=== PATIENT | female | born 2005 | race Caucasian/White ===

== ENCOUNTER → 2025-01-24 08:48 | Outpatient (BNVA) | payer SELFPAY | PROVIDERS: Visit Provider Emergency Medicine | DX: S62.630B Displaced fracture of distal phalanx of right index finger, initial encounter for open fracture (principal); W23.0XXA Caught, crushed, jammed, or pinched between moving objects, initial encounter | CPT/HCPCS: 99203 ==

== ENCOUNTER 2025-01-24 10:36 | Emergency (ER) | payer OTHER, SELFPAY ==
[2025-01-24 10:42] VITALS: BP 126/61; PULSE 79; RESP 18; TEMP 36.4; O2SAT 98; BMI 36.6
--- NOTE | 2025-01-24 11:17 | ED_ITS ---
HPI - Wound/Laceration General Chief Complaint: Wound/Laceration Stated Complaint: finger infection Time Seen by Provider: 01/24/25 12:17 Source: patient and family (patient's mother) Mode of arrival: ambulatory Limitations: no limitations History of Present Illness ED Provider: Nikole Cristobal PA-C HPI narrative: Patient is a 19 year old assigned female at with no reported medical history presenting to the emergency department today with a right index finger injury. Patient states that she smashed her finger between 2 metal pieces at work and continues to have pain. Patient denies any other complaints at this time. Patient states that she was evaluated at [facility] and sent here because her x-ray showed a probable fracture. Related Data Previous Rx's ?Medication ?Instructions ?Recorded amoxicillin 875 mg-potassium 1 tab PO BID 7 days #14 t abs 01/27/25 clavulanate 125 mg tablet Allergies Allergy/AdvReac Type Severity Reaction Status Date / Time nut - unspecified Allergy Unknown Verified 01/27/25 10:06 Review of Systems 2 Constitutional: Constitutional: Reports as per HPI Eyes: Eyes: Reports as per HPI ENT: Reports as per HPI Cardiovascular: Cardiovascular: Reports as per HPI Respiratory: Respiratory: Reports as per HPI Gastrointestinal: Gastrointestinal: Reports as per HPI Genitourinary: Genitourinary: Reports as per HPI Musculoskeletal: Musculoskeletal: Reports as per HPI Integumentary/Breasts: Skin/Breast: Reports as per HPI Neurologic: Reports as per HPI Psychiatric: Psychiatric: Reports as per HPI Endocrine: Endocrine: Reports as per HPI Hematologic/Lymphatic: Hematologic/Lymphatic: Reports as per HPI Allergic/Immunologic: Allergic/Immunologic: Reports as per HPI [facility] Past Medical History Attestation statement: The following information was validated with the patient. (all information validated with the patient's with the patient's mother) Source: old records reviewed, obtained from family (patient's mother provided additional history and confirmed the history provided by the patient.) and nursing notes reviewed Social History Social History (Updated 01/27/25 @ 10:10 by MARISOL Hurd) Alcohol intake: never Patient Tobacco Use Status: Never used Tobacco Current occupational status: employed Current occupation: wire welder, rt handed Physical Exam 2 Vital Signs: Vital Signs: Last Vital Signs Temp 98.7 F 01/24/25 14:31 Pulse 68 01/24/25 14:31 Resp 18 11/18/25 14:31 BP 124/70 01/24/25 14:31 Pulse Ox 99 01/24/25 14:31 O2 Del Method Room Air 01/24/25 14:31 BMI result Body Mass Index 36.6 Const: General: cooperative, no acute distress, alert and awake Nutritional Appearance: well nourished Orientation/consciousness: patient oriented x3 HEENT: Head: Yes normal to inspection and Yes atraumatic Ears: hearing grossly normal bilaterally and external ears normal General nose exam: Normal external nose present, no nasal discharge noted and no epistaxis Face and sinus: Yes normal facial exam, No abrasion and No laceration Mouth: Normal oral and palatal mucosa present, no drooling and no muffled voice Eyes: General: appearance normal, both eyes and all related structures P eriorbital: periorbital findings normal Eyelids: Yes eyelids normal C onjunctivae: conjunctivae normal Pupils: Equal, round and reactive pupils present EOM: EOMs intact bilaterally Neck: Neck: Yes normal visual inspection and Yes full ROM Resp: Effort & Inspection: normal respiratory effort and able to speak in complete sentences Neuro: General: patient oriented x3, moves all extremities and CN's II-XI intact bilaterally Cranial nerves: Yes Equal, round and reactive pupils present Cognition (Neuro): normal cognition Extrem: Other: General: Yes full ROM and Yes capillary refill normal Psych: Appearance: grossly normal Mental Status: mental status grossly normal Affect: normal affect Attitude: cooperative Thought process: N ormal thought process present Thought content: Normal thought content present Insight: Good insight present (Psych) Course Course Course Narrative: This is an RME: Additional HPI, ROS, PE not included below will be deferred to primary provider. RME assessment and note performed by: Nela Kapoor PA-C This is a 19-year-old female who presents emergency department with complaints of right 2nd digit laceration /open fracture. She is coming from [facility]. She states that her finger got trapped in between 2 pieces of metal. Last tetanus was in 2017. Unable to visualize in triage due to finger being wrapped. Medications Administered Discontinued Medications Generic Name Dose Route Start Last Admin Trade Name Freq PRN Reason Stop Dose Admin Diphtheria/Tetanus/Acell Pertussis 0.5 ml 01/24/25 12:31 01/24/25 12:51 Diphth,Pertus(Yoselin),Tet Adult 0.5 Ml Syringe IM 01/24/25 12:32 0.5 ml .ONCE ONE Administration Lidocaine HCl 15 ml 01/24/25 12:31 01/24/25 12:51 Lidocaine Hcl 1 % Mpf 5 Ml Vial SUBCUT 01/24/25 12:32 15 ml ONCE ONE Administration Medical Decision Making Medical Decision Making MDM Narrative: Patient is a 19 year old assigned female at with no reported medical history presenting to the emergency department today with a right index finger injury. Patient's physical exam was as noted in the physical exam portion of this note. Patient's right finger x-ray showed a comminuted distal tuft fracture to the distal phalanx of the second digit with subcutaneous emphysema. I spoke with the orthopedic team who recommended approximating the wound edges as best as possible and splinting the finger with prophylactic antibiotic coverage and follow up with them on an outpatient basis. Patient's laceration was thoroughly cleaned and soaked. Patient's laceration was repaired - per procedure note, without incident. The patient's nail was not adhered to the nail bed and was removed during the repair process. Patient's PMS was intact prior to and after laceration repair. Patient's nail bed was covered with xeroform and the laceration as bandaged with non-stick gauze and web roll, without incident. Patient's finger was then splinted with a long finger splint, without incident. Patient's PMS was intact prior to and after bandaging and splinting. Patient brought up to date on tetanus status. I explained my physical exam findings as well as all test results to the patient and the patient's mother. I answered all questions asked by the patient and the patient's mother. I stressed the importance of the patient taking her medication as directed (either prescribed or as the over the counter packaging recommends). I stressed the importance of the patient following up with her primary care provider and the orthopedic team. I stressed the importance of the patient returning to the emergency department immediately if her symptoms were to worsen or if she were to develop any dizziness, shortness of breath, difficulty breathing, chest pain, blurry vision, loss of vision, nausea, vomiting, abdominal pain, fever, chills, back pain, or any other complaints. Patient and the patient's mother verbalized agreement and understanding with this treatment plan and discharge. Differential Diagnosis Differential Diagnoses: The differential diagnosis associated with the presentation includes Finger laceration Finger fracture Admission/Observation Consideration of admission/observation: Escalation of care including admission/observation considered Patient would have been admitted to the hospital had her work up had any findings where hospital admission was appropriate and her clinical presentation warranted hospital admission. Consult Healthcare Provider Management of the patient was discussed with: Retail Sales Merchandiser (I spoke with the orthopedic team as noted in the MDM Rationale portion of this note. ) Independent Interpretation I performed an independent interpretation of an: Plain X-Ray Interpretation: My interpretation is in agreement with the radiologist's impression of this imaging study below. Radiology Impression Discussion of test interpretation with radiology: I have reviewed the radiologist's reading. Independent Historian Clinical information obtained from an independent historian. History obtained from or confirmed by: Parent (patient's mother provided additional history and confirmed the history provided by the patient. ) External Record Review External record reviewed: Prior outpatient radiology (reviewed patients finger XR performed through [facility] as noted in the MDM Rationale portion of this note. ) Prescription Management I considered prescription management with: Antibiotic (patient prescribed prophylactic antibiotic as noted in the MDM Rationale portion of this note due to mechanism of injury. ) Procedures Laceration R index finger laceration: Site: other (finger laceration) Side (If applicable): right Size (cm): 2 Description: irregular Depth: simple, single layer Local Anesthetic: lidocaine 1% Pre-repair: wound explored, irrigated extensively and deep structures intact Skin layer closed with: other (prolene) Number of sutures: 1 Technique: simple, interrupted Nerve Block Nerve Block 1: Time out performed: Yes Local Anesthetic: lidocaine 1% Amount of anesthesia used (mL): 10 Side: right Nerve Blocks: digital (index) Procedure Successful: Yes Patient Tolerated Procedure: well Complications: none Orthopedic Splinting/Casting R index finger: Side: right Upper Extremity Injury Location: finger (index) Upper Extremity Immobilizer: finger (other) Critical Care Time Critical Care Time Critical Care Time: Yes Total Critical Care Time: 35 Attestation: I spent 35 minutes of Critical Care Time with this patient. This does not include time spent on separately reported billable procedures. Discharge Plan Discharge Clinical Impression: Open fracture, Crush injury, Finger laceration, Finger fracture Patient Disposition: Home, Self-Care Instructions: Care For Your Stitches (DC), Finger Fracture (ED), Finger Laceration (ED) Additional Instructions: Do NOT stick anything down / into your splint. Do NOT get your splint wet. Do N OT remove your splint. If you have any change in sensation, movement, or color of your right index finger tip - you may loosen the outer KIT wraps. If you find yourself loosening the KIT wraps to the point of seeing the white splint material underneath - STOP and proceed to your closest Emergency Department, i mmediately. Follow up with your primary care provider and the orthopedic team. Take your antibiotic as prescribed. Return to the emergency department immediately if your symptoms worsen or if you develop any numbness, tingling, dizziness, shortness of breath, difficulty breathing, chest pain, blurry vision, loss of vision, nausea, vomiting, abdominal pain, fever, chills, back pain, or any other complaints. Please see the information below about our Patient Portal. If you are not yet enrolled in the [facility] Patient Portal, you will receive an enrollment email invitation following your visit to any [facility] care setting. You may also self-enroll in the Patient Portal by visiting our website: [email or web address] The following information is required to access the Patient Portal: - Your [facility] Medical Record Number - Your personal home email address (must match what is in your electronic medical record, Registration staff can assist with this) - Name - Date of Capabilities of the Patient Portal: - Message some providers - View upcoming appointments - Access your health summary, medical history, and visit history - View current conditions and allergies - View procedure and lab results - View your medications, including guidelines, side effects, and precautions - Complete pre-appointment questionnaires requested by your provider - Ready summary reports of your office visits and procedures To access the Patient Portal Mobile Syed, follow these directions: - Search [employer] in the Syed Store or JOOR Store - Download the Syed - Search for [facility] - Enter your login/password Prescriptions: No Action amoxicillin-pot clavulanate 875-125 mg tablet 1 tab PO BID 7 Days Qty: 14 0RF Referrals: [facility] [Provider Group] Referral Note: Call to establish and follow up with the orthopedic team. [facility] [Provider Group] Referral Note: Given this was a work place injury, please follow up with the [facility] team. Stand Alone Forms: Work/School Release Interventions: ED Discharge Assessment Last Done: 01/24/25 14:31 Discharge Date/Time: 01/24/25 14:35 Print Language: Syriac
[2025-01-24] MEDS: Diphth,Pertus(ACell),Tet Adult 0.5 ML SYRINGE IM (12:51)
[2025-01-24] MEDS: Lidocaine HCl 1 % MPF 5 ML VIAL 15 ML SUBCUT (12:51)
[2025-01-24 13:37] VITALS: BP 124/70; PULSE 68; RESP 18; O2SAT 99
[2025-01-24 14:31] VITALS: BP 124/70; PULSE 68; RESP 18; TEMP 37.1; O2SAT 99
== END 2025-01-24 14:35 | disposition home or self-care (01) ==
PROVIDERS: Emergency Provider Emergency Medicine
DX: S67.190A Crushing injury of right index finger, initial encounter (principal); S62.630B Displaced fracture of distal phalanx of right index finger, initial encounter for open fracture; Z23 Encounter for immunization; W23.0XXA Caught, crushed, jammed, or pinched between moving objects, initial encounter; Y93.9 Activity, unspecified; Y92.89 Other specified places as the place of occurrence of the external cause; Y99.0 Civilian activity done for income or pay
CPT/HCPCS: 12001; 90471; 90715; 99283; 99284; J2003

== ENCOUNTER → 2025-01-26 09:26 | Outpatient (BNVA) | payer OTHER, SELFPAY | PROVIDERS: Visit Provider Emergency Medicine | DX: Z09 Encounter for follow-up examination after completed treatment for conditions other than malignant neoplasm (principal); S62.630B Displaced fracture of distal phalanx of right index finger, initial encounter for open fracture; W23.0XXA Caught, crushed, jammed, or pinched between moving objects, initial encounter | CPT/HCPCS: 99203 ==

== ENCOUNTER 2025-01-27 09:45 | Outpatient (REF) | payer OTHER, SELFPAY ==
--- NOTE | ~2025-01-27 | XR_ITS ---
EXAMINATION: XR HAND, RIGHT CLINICAL INFORMATION: M79.641 - Pain in right hand COMPARISON: Radiographs on January 24, 2025 TECHNIQUE: PA, lateral, and oblique views of the right hand. FINDINGS: Comminuted fracture of the tuft of the second distal phalanx, with small displaced fragments, with evidence of early interval healing. No new fractures. No dislocation. Previously seen soft tissue lucency in the proximal aspect of the second digit is no longer seen. No radiopaque foreign body. XR/XR hand RT min 3V IMPRESSION: Follow-up healing displaced comminuted fracture of the second distal phalanx. Electronically signed by: Amanda Mejía MD 01/27/2025 10:11 AM BERTA
== END 2025-01-27 09:46 | disposition home or self-care (01) ==
LOC: HO.HOSX 09:45
DX: S62.630B Displaced fracture of distal phalanx of right index finger, initial encounter for open fracture (principal); W23.1XXA Caught, crushed, jammed, or pinched between stationary objects, initial encounter; Y99.0 Civilian activity done for income or pay; Y92.69 Other specified industrial and construction area as the place of occurrence of the external cause
CPT/HCPCS: 73130; 99202

== ENCOUNTER 2025-01-27 09:55 | Outpatient (AMB) | payer OTHER, SELFPAY ==
--- NOTE | 2025-01-27 10:04 | A.OFFVIS_ITS ---
Vital Signs 01/27/25 10:06 Height 5 ft 2 in Weight 200 lb BMI 36.6 Intake Visit Reasons: Open FX right index finger DOI01/24/25 Intake Note: Linda is a 19 year old right hand dominant female, new patient, who presents today for an ED Follow up status post Right Index Finger Injury, DOI: 01/24/25. Patient presented to [facility] reporting she smashed her finger between 2 m etal pieces at work. At the ED, she was given a prescription for Augmentin and placed in a finger splint. Today, patient reports she continues taking her antibiotics. She complains of some numbness at the tip of her finger. 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 Allergies nut - unspecified Allergy (Verified 01/27/25 10:06) Unknown HPI HPI Open FX right index finger DOI01/24/25: Details: Linda is a 19 year old right hand dominant female, new patient, who presents today for an ED Follow up status post Right Index Finger Injury, DOI: 01/24/25. Patient presented to [facility] reporting she smashed her finger between 2 metal pieces at work. While in the ED, 1 stitch was placed in the skin tip of the right index finger, however when suturing was attempted on the nail of the right index finger, the nail did separate from the finger entirely. At the ED, she was given a prescription for Augmentin and placed in a finger splint. Today, patient reports she continues taking her antibiotics. She complains of some numbness at the tip of her finger. 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 [facility] Social History (Updated 01/27/25 @ 10:10 by MARISOL Hurd) Alcohol intake: never Patient Tobacco Use Status: Never used Tobacco Current occupational status: employed Current occupation: wire welder, rt handed Review of Systems Const All systems reviewed & are unremarkable except as noted in HPI and below Physical Exam Vital Signs: BMI result Body Mass Index 36.6 Extrem Other: Patient is alert, oriented, and in no acute distress. Neuro: Diminished sensation of the tip of the right index finger Normal sensation of the tips of all digits of the right hand at this time Vascular: Cap refill brisk Pain: Minimal tenderness to palpation about the tip of the right index finger No discomfort with range of motion of the right hand ROM: Patient is able to make a closed fist and extend all digits of the right hand fully Skin: Complex laceration noted of the distal aspect of the right index finger on the distal and volar aspects Nail has been completely removed [address] General: No ecchymosis, erythema, or evidence of infection. Psych: Appears grossly normal Affect normal Attitude cooperative Results Reviewed Results Reviewed: X-rays obtained in the office today and independently reviewed by me, Bharathi Sousa PA-C, demonstrate minimally displaced distal tuft fracture of the right index finger. Assessment & Plan Assessment & Plan (1) Open fracture of distal phalanx of right index finger: Code(s): S62.630B - Displaced fracture of distal phalanx of right index finger, initial encounter for open fracture Category: Medical Plan 1. Open fracture of the distal phalanx of right index finger Date of injury 01/24/25 Patient is educated about this condition Patient is educated about the typical treatment course Antibiotics refilled Patient is educated to keep the area clean, dry, intact at all times Daily dressing changes advised Thin layer of antibiotic ointment maybe applied to any open areas during dressing change Take antibiotics as prescribed Patient is educated on signs and symptoms of worsening infection, and should present to the ED if experiencing any of the symptoms Out of work until follow-up, as the patient works as a wire welder Follow-up in 1 week for wound check, sooner with any acute concerns Orders: Orders XR hand RT min 3V Today M79.641 - Pain in right hand Medications: Refilled amoxicillin-pot clavulanate 875-125 mg 1 tab PO BID 14 tabs 0RF 7 days Coding Level of Care Code New Pt Level 3 (38659) Diagnoses Open fracture of distal phalanx of right index finger S62.630B
[2025-01-27 10:06] VITALS: BMI 36.6
== END 2025-01-27 10:50 | disposition home or self-care (01) ==
LOC: HO.HOS 09:56
DX: S62.630B Displaced fracture of distal phalanx of right index finger, initial encounter for open fracture (principal)
CPT/HCPCS: 99203

== ENCOUNTER → 2025-01-27 09:58 | Outpatient (BNV) | payer OTHER, SELFPAY | PROVIDERS: Visit Provider Radiology Body Imaging | DX: M79.641 Pain in right hand (principal) | CPT/HCPCS: 73130 ==

== ENCOUNTER 2025-02-10 13:15 | Outpatient (AMB) | payer OTHER, SELFPAY ==
[2025-02-10 13:44] VITALS: BMI 36.6
--- NOTE | 2025-02-10 13:44 | MHC.OFFVIS ---
Vital Signs 02/10/25 13:44 Height 5 ft 2 in Weight 200 lb BMI 36.6 Intake Visit Reasons: OV-Open FX RT index finger DOI 01/24/25-W/xrays Intake Note: Linda is a 19 year old right hand dominant female who presents today for a Wound Check status post Right Index Distal Phalanx Fracture, DOI: 01/24/25. At his last visit antibiotics were refilled. Patient was instructed to do daily dressing changes and apply light antibiotic ointment. 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 Work status to be discussed today. Today, patient complains of some numbness at the DIP of her right index finger. She also reports minimal pain. She continues taking her antibiotics as prescribed. Allergies nut - unspecified Allergy (Verified 01/27/25 10:06) Unknown HPI HPI OV-Open FX RT index finger DOI 01/24/25-W/xrays: Details: Linda is a 19 year old right hand dominant female who presents today for a Wound Check status post Right Index Distal Phalanx Fracture, DOI: 01/24/25. At his last visit antibiotics were refilled. Patient was instructed to do daily dressing changes and apply light antibiotic ointment. 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 Work status to be discussed today. Today, patient complains of some numbness at the DIP of her right index finger. She also reports minimal pain. She continues taking her antibiotics as prescribed. Patient states she feels she is healing well. Feels that she is able to feel some pressure at the very tip of the right index finger, but unable to feel like sensation. Patient reports that proximal to the laceration and distal to the D IP joint, she does have normal sensation. Patient reports that it does cause pain for her to push down with a finger on a table or hard surface, and there is some slight tenderness to palpation. Denies redness or discharge from the laceration site. No other acute complaints or concerns at this time. [facility] Social History (Updated 01/27/25 @ 10:10 by MARISOL Hurd) Alcohol intake: never Patient Tobacco Use Status: Never used Tobacco Current occupational status: employed Current occupation: machine welder, rt handed Review of Systems Const All systems reviewed & are unremarkable except as noted in HPI and below Physical Exam Vital Signs: BMI result Body Mass Index 36.6 Extrem Other: Patient is alert, oriented, and in no acute distress. Neuro: Diminished sensation of the tip of the right index finger Normal sensation of the tips of all digits of the right hand at this time Vascular: Cap refill brisk Pain: Minimal tenderness to palpation about the tip of the right index finger No discomfort with range of motion of the right hand ROM: Patient is able to make a closed fist and extend all digits of the right hand fully Skin: Complex laceration noted of the distal aspect of the right index finger on the distal and volar aspects, this appears to be healing very well Nail has been completely removed, there does appear to be a small amount of nail that is growing out of the germinal matrix [address] General: No ecchymosis, erythema, or evidence of infection. Psych: Appears grossly normal Affect normal Attitude cooperative Results Reviewed Results Reviewed: X-rays obtained in the office today and independently reviewed by me, Bharathi Sousa PA-C, demonstrate minimally displaced distal tuft fracture of the right index finger. Assessment & Plan Assessment & Plan (1) Open fracture of distal phalanx of right index finger: Code(s): S62.630B - Displaced fracture of distal phalanx of right index finger, initial encounter for open fracture Category: Medical Plan 1. Open fracture of the distal phalanx of right index finger Date of injury 01/24/25 Patient is educated about this condition Patient is educated about the typical treatment course Finish current course of antibiotics, no refill indicated at this time Patient may wash the incision site with soap and water in the sink of the shower, no submerging for at least a further 2 weeks Dressings when out and about, may leave open to air with a little bit of antibiotic ointment while at home Thin layer of antibiotic ointment maybe applied to any open areas Finish antibiotics as prescribed Patient is educated on signs and symptoms of worsening infection, and should present to the ED if experiencing any of the symptoms Out of work until follow-up, as the patient works as a machine welder Follow-up in 2 week for wound check, sooner with any acute concerns Orders: Orders XR hand RT min 3V Today M79.641 - Pain in right hand Coding Level of Care Code Global (55630) Diagnoses Open fracture of distal phalanx of right index finger G48.855B
== END 2025-02-10 14:29 | disposition home or self-care (01) ==
LOC: HO.HOS 13:16
DX: S62.630B Displaced fracture of distal phalanx of right index finger, initial encounter for open fracture (principal)
CPT/HCPCS: 99213

== ENCOUNTER → 2025-02-10 13:19 | Outpatient (BNV) | payer OTHER, SELFPAY | PROVIDERS: Visit Provider Radiology Diagnostic Radiology | DX: S62.630B Displaced fracture of distal phalanx of right index finger, initial encounter for open fracture (principal) | CPT/HCPCS: 73130 ==

== ENCOUNTER 2025-02-10 16:39 | Outpatient (REF) | payer OTHER, SELFPAY ==
--- NOTE | ~2025-02-10 | XR_ITS ---
EXAMINATION: XR HAND 3 OR MORE VIEWS RIGHT HISTORY: M79.641 - Pain in right hand COMPARISON: Comparison is made with the prior examination dated 01/27/2025. FINDINGS: Three views of the right hand are submitted. Osseous mineralization is normal. Again seen is a comminuted fracture of the distal tuft of the index and interpreted the fracture lines remain visible. The joint spaces are preserved. The soft tissues are unremarkable. XR/XR hand RT min 3V IMPRESSION: Comminuted fracture of the distal tuft of the index finger without change. Electronically signed by: Kale Guzman MD 02/10/2025 01:33 PM EST
== END 2025-02-10 16:40 | disposition home or self-care (01) ==
LOC: HO.HOSX 16:39
DX: S62.630B Displaced fracture of distal phalanx of right index finger, initial encounter for open fracture (principal)
CPT/HCPCS: 73130

== ENCOUNTER 2025-02-24 08:50 | Outpatient (REF) | payer OTHER, SELFPAY ==
--- NOTE | ~2025-02-24 | XR_ITS ---
EXAMINATION: XR HAND, RIGHT CLINICAL INFORMATION: M79.641 - Pain in right hand , follow-up tuft fracture, second digit COMPARISON: 02/10/2025 TECHNIQUE: PA, lateral, and oblique views of the right hand. FINDINGS: Again seen is a tuft fracture of the second digit. There is increasing osteopenia consistent with bone resorption during early healing. No other changes are apparent. XR/XR hand RT min 3V IMPRESSION: Early healing of a tuft fracture involving the second digit of the right hand Electronically signed by: Jono Mckoy MD 02/24/2025 01:19 PM BERTA BOWSER
== END 2025-02-24 08:51 | disposition home or self-care (01) ==
LOC: HO.HOSX 08:50
DX: S62.630D Displaced fracture of distal phalanx of right index finger, subsequent encounter for fracture with routine healing (principal); X58.XXXD Exposure to other specified factors, subsequent encounter
CPT/HCPCS: 73130

== ENCOUNTER 2025-02-24 13:06 | Outpatient (AMB) | payer OTHER, SELFPAY ==
--- NOTE | 2025-02-24 13:13 | A.OFFVIS_ITS ---
Vital Signs 02/24/25 13:15 Height 5 ft 2 in Intake Visit Reasons: OV-WC -RT index finger DOI 01/24/25-W/xrays Intake Note: Linda is a 19 year old right hand dominant female who presents today for a Wound Check status post Right Index Distal Phalanx Fracture, DOI: 01/24/25. At her last visit she was advised to finish antibiotics, wash hands with clean soapy water, no submerging & to leave open to air while home but cover while out of the house. 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 At today's visit she states that the right index finger is warm to the touch and that she is still having numbness and tingling. Allergies nut - unspecified Allergy (Verified 01/27/25 10:06) Unknown HPI HPI OV-WC -RT index finger DOI 01/24/25-W/xrays: Details: Linda is a 19 year old right hand dominant female who presents today for a Wound Check status post Right Index Distal Phalanx Fracture, DOI: 01/24/25. At her last visit she was advised to finish antibiotics, wash hands with clean soapy water, no submerging & to leave open to air while home but cover while out of the house. 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 At today's visit she states that the right index finger is warm to the touch and that she is still having numbness and tingling. Patient reports some discomfort in the tip of the right index finger, but nothing she would describe as severe pain. Patient does report overall improvement in symptoms from prior evaluation. [facility] Social History (Updated 01/27/25 @ 10:10 by MARISOL Hurd) Alcohol intake: never Patient Tobacco Use Status: Never used Tobacco Current occupational status: employed Current occupation: basin finish operator tig welder, rt handed Review of Systems Const All systems reviewed & are unremarkable except as noted in HPI and below Physical Exam Extrem Other: Patient is alert, oriented, and in no acute distress. Neuro: Diminished sensation of the tip of the right index finger Normal sensation of the tips of all digits of the right hand at this time Vascular: Cap refill brisk Pain: Minimal tenderness to palpation about the tip of the right index finger No discomfort with range of motion of the right hand ROM: Patient is able to make a closed fist and extend all digits of the right hand fully Skin: Complex laceration noted of the distal aspect of the right index finger on the distal and volar aspects, this appears to be healing very well, almost fully healed Nail has been completely removed, there does appear to be a small amount of nail that is growing out of the germinal matrix General: Some hyperemia noted No ecchymosis, erythema, or evidence of infection. Psych: Appears grossly normal Affect normal Attitude cooperative Results Reviewed Results Reviewed: X-rays obtained in the office today and independently reviewed by me, Bharathi Sousa PA-C, demonstrate minimally displaced distal tuft fracture of the right index finger with some evidence of early interval bony healing. Assessment & Plan Assessment & Plan (1) Open fracture of distal phalanx of right index finger: Code(s): S62.630B - Displaced fracture of distal phalanx of right index finger, initial encounter for open fracture Category: Medical Plan 1. Open fracture of the distal phalanx of right index finger Date of injury 01/24/25 Patient is educated about this condition Patient is educated about the typical treatment course No signs or symptoms of ongoing infection Patient may wash the incision site with soap and water in the sink of the shower, no submerging for at least a further 2 weeks Dressings when out and about, may leave open to air with a little bit of antibiotic ointment while at home Thin layer of antibiotic ointment maybe applied to any open areas Patient is educated on signs and symptoms of worsening infection, and should present to the ED if experiencing any of the symptoms Out of work until follow-up, as the patient works as a basin finish operator tig welder Follow-up in 2 week for wound check, sooner with any acute concerns Orders: Orders XR hand RT min 3V Today M79.641 - Pain in right hand Coding Level of Care Code Global (96683) Diagnoses Open fracture of distal phalanx of right index finger S62.630B
== END 2025-02-24 13:29 | disposition home or self-care (01) ==
LOC: HO.HOS 13:06
DX: S62.630B Displaced fracture of distal phalanx of right index finger, initial encounter for open fracture (principal)
CPT/HCPCS: 99213

== ENCOUNTER → 2025-02-24 13:08 | Outpatient (BNV) | payer OTHER, SELFPAY | PROVIDERS: Visit Provider Radiology Diagnostic Radiology | DX: S62.521D Displaced fracture of distal phalanx of right thumb, subsequent encounter for fracture with routine healing (principal) | CPT/HCPCS: 73130 ==